=== PATIENT | male | born 1960 | race Caucasian/White ===

== ENCOUNTER → 2024-09-23 | Outpatient (CLI) | payer MEDICARE, BC, SELFPAY ==
--- NOTE | 2024-09-23 11:19 | XR_ITS ---
Examination: CT abdomen with intravenous contrast CT pelvis with intravenous contrast 2-D coronal reconstructions 2-D sagittal reconstructions Date and time of exam:September 23, 2024 1201 hours INDICATIONS: Left lower quadrant abdominal pain this week, history diverticulitis. CTDI: vol (mGy) 14.5 DLP: (mGycm) 1073 Technique: Multiple axial sections of the abdomen and pelvis have been obtained. 64 slice high-resolution scanner used. 3 mm axial sections have been obtained, post intravenous injection 60 cc [id number] 2-D sagittal, coronal reconstructions obtained. Low dose protocols were performed. One or more of the following dose reduction techniques were used; automated exposure control, adjustment of the mA and/or KV according to patient size, use of iterative reconstruction technique. Findings: Diffuse fatty infiltration throughout the liver No gallstones Spleen not enlarged No pancreatic or adrenal mass Mild small bowel ileus Moderate renal parenchymal scar formation Transverse dimension infrarenal abdominal aorta 29 mm Normal appendix 22 mm fat-containing umbilical hernia Colonic diverticulosis Acute diverticulitis sigmoid colon no peridiverticular abscess Contracted urinary bladder IMPRESSION: Acute diverticulitis sigmoid colon, no peridiverticular abscess
== END | disposition home or self-care (01) ==
LOC: SCAT 09-30 07:18
PROVIDERS: PCP Internal Medicine; Referring Provider Internal Medicine; Visit Provider Internal Medicine
DX: K57.92 Diverticulitis of intestine, part unspecified, without perforation or abscess without bleeding (principal)
CPT/HCPCS: 74177; A4649; Q9967

== ENCOUNTER → 2025-04-01 | Outpatient (CLI) | payer MEDICARE, BC, SELFPAY ==
--- NOTE | 2025-04-01 | XR_ITS ---
Examination: Sinus series 4 views TECHNIQUE: Ayesha Wills lateral submentovertex sinus series 4 views Date and time: April 01, 2025 1151 hours INDICATIONS: Coughing congestion beginning 2 months ago sinus pressure and pain FINDINGS: Significant opacity in the frontal ethmoid air cells Mucosal thickening up to 4 mm in the right maxillary antrum Haziness in the sphenoid air cells IMPRESSION: Chronic pansinusitis, most severe frontal air cells No retention cysts No fluid levels
--- NOTE | 2025-04-01 | XR_ITS ---
Examination: PA lateral chest 2 views TECHNIQUE: Upright PA lateral chest 2 views Date and time: April 01, 2025 1145 hours INDICATIONS: Coughing congestion beginning 2 months ago. FINDINGS: Normal heart size. Lungs are clear. The osseous structures are intact. IMPRESSION: No active disease.
== END | disposition home or self-care (01) ==
LOC: CDIM 11:01
PROVIDERS: PCP Nurse Practitioner Family; Referring Provider Nurse Practitioner Family; Visit Provider Nurse Practitioner Family
DX: J32.4 Chronic pansinusitis (principal); R05.3 Chronic cough
CPT/HCPCS: 70220; 71046

== ENCOUNTER → 2025-05-23 | Outpatient (CLI) | payer MEDICARE, BC, SELFPAY ==
--- NOTE | 2025-05-23 15:40 | XR_ITS ---
EXAMINATION: Right knee 4 views TECHNIQUE: AP oblique lateral axial right knee 4 views Date and time: May 23 0 25, 1601 hours INDICATIONS: Right knee pain beginning 3 weeks ago. FINDINGS: Moderate to advanced tricompartment osteoarthritis. No fracture No patellar dislocation IMPRESSION: Moderate to advanced tricompartment osteoarthritis
== END | disposition home or self-care (01) ==
PROVIDERS: PCP Physician Assistant; Referring Provider Physician Assistant; Visit Provider Physician Assistant
DX: M17.11 Unilateral primary osteoarthritis, right knee (principal); M23.51 Chronic instability of knee, right knee
CPT/HCPCS: 73564

== ENCOUNTER → 2025-06-03 | Outpatient (CLI) | payer MEDICARE, BC, SELFPAY ==
--- NOTE | 2025-06-03 15:00 | XR_ITS ---
EXAMINATION: AP bilateral knees single view TECHNIQUE: Standing AP bilateral knees single view Date and time: June 03, 2025, 1506 hours INDICATIONS: Knee pain months FINDINGS: Moderate narrowing medial joint space right knee Moderate to advanced narrowing medial joint space left knee Moderate osteoarthritis lateral joint spaces No fractures or dislocations IMPRESSION: Moderate narrowing medial joint space right knee Moderate to advanced joint medial joint space left knee
== END | disposition home or self-care (01) ==
LOC: CDIM 14:56
PROVIDERS: Referring Provider Orthopaedic Surgery; Visit Provider Orthopaedic Surgery
DX: M25.862 Other specified joint disorders, left knee (principal); M25.861 Other specified joint disorders, right knee
CPT/HCPCS: 73565

== ENCOUNTER → 2025-06-06 | Outpatient (CLI) | payer MEDICARE, BC, SELFPAY ==
--- NOTE | 2025-06-06 16:00 | XR_ITS ---
Exam: MRI examination right knee without contrast INDICATIONS: Walking injury April 30, 2025 with pain and swelling involving the knee joint clicking, diagnosis displaced fracture of the medial condyle of the right tibia initial encounter for closed fracture Date and time of exam: June 06, 2025, 1642 hours Technique: Multiple axial, coronal, and sagittal sections on the knee have been obtained. T2-Weighted sagittal, fat-suppressed images, TR 3,500, TE 62, T2 weighted coronal fat-saturated images, TR 3,500, TE 62 Proton density sagittal sections, TR 1800, TE 31. T-1 weighted coronal images, TR 524, TE 13.0 Findings: Medial meniscus anterior horn intact. Medial meniscus, body intact horizontal linear tear communicating inner margin Posterior horn medial meniscus horizontal. Linear tear communicating inner margin Lateral meniscus anterior horn is intact Lateral meniscus, body is intact Posterior horn lateral meniscus is intact Anterior cruciate ligament mild sprain Posterior cruciate ligament appears intact. Knee effusion is moderate. Quadriceps and patellar tendons appear intact. There is no evidence of tendinosis. Inflammatory change or fracture of Hoffa's fat pad is not seen. Medial patellar facet demonstrates severe thinning. Lateral patellar facet cartilage demonstrates severe thinning. Trochlear cartilage demonstrates severe thinning. Marrow signal adequate. Medial collateral ligament appears intact. No meniscocapsular separation is seen. Illiotibial band and fibular collateral ligament are intact. Biceps femoris tendons appear intact. Medial femoral condylar articular cartilage demonstrates severe thinning. Lateral femoral condylar articular cartilage demonstrates severe thinning. Tibial plateau cartilage demonstrates severe thinning. Impression: Large horizontal linear tears body and posterior horn medial meniscus Mild sprain anterior cruciate ligament
== END | disposition home or self-care (01) ==
LOC: SMRI 16:05
PROVIDERS: PCP Physician Assistant; Referring Provider Orthopaedic Surgery; Visit Provider Orthopaedic Surgery
DX: S83.511A Sprain of anterior cruciate ligament of right knee, initial encounter (principal); S83.241A Other tear of medial meniscus, current injury, right knee, initial encounter; X58.XXXA Exposure to other specified factors, initial encounter
CPT/HCPCS: 73721